=== PATIENT | female | born 2000 | race African-American/Black ===

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

== ENCOUNTER 2019-04-11 04:15 | Emergency (ER) | payer MEDICAID, OTHER ==
[2019-04-11] MEDS ORDERED: LIDOCAINE 1.5%/EPINEPHRINE INJ-PF 30 ML SDV INJ ONE (05:31)
[2019-04-11] MEDS ORDERED: SILVER NITRATE APPLICATOR 1 APPLIC STICK..EA. 10/PACKAGE TOP ONE (05:31)
[2019-04-11] MEDS ORDERED: LIDOCAINE 1%/EPINEPHRINE INJ 20 ML VIAL ONE (05:36)
[2019-04-11 05:39] LABS: APPEARANCE,URINE CLEAR; BILIRUBIN,URINE NEGATIVE (NEGATIVE); COLOR,URINE YELLOW; GLUCOSE, URINE NEGATIVE (NEGATIVE); KETONES,URINE NEGATIVE (NEGATIVE); PROTEIN,URINE NEGATIVE (NEGATIVE); URINE SPECIFIC GRAVITY 1.018; UROBILINOGEN,URINE NEGATIVE mg/dL (<2.0)
--- NOTE | 2019-04-11 06:16 | ER Document Report ---
ED GI/ - General Chief Complaint: Lower Abdominal Pain Stated Complaint: LOWER ABDOMINAL PAIN Time Seen by Provider: 04/11/19 05:04 Information source: Patient Notes: Ms. Arteaga is a 19 yo F w/ no significant past medical history presenting to the emergency department for lower abdominal pain. Patient states the pain has been going on for 3 to 4 days and describes it is a discomfort/pressure in the pelvis. She endorses some vaginal discharge that is yellowish in coloration. No foul smells. Patient does endorse multiple sexual partners, last sexual partner was approximately 2 to 3 weeks ago. She denies regular use of condoms. She is not actively using any form of control. Patient denies any chest pain, fever, chills, upper abdominal pain, nausea, vomiting or diarrhea. She denies any increased urinary frequency or dysuria. TRAVEL OUTSIDE OF THE [place] IN LAST 30 DAYS: No - Related Data Allergies/Adverse Reactions: No Known Allergies Allergy (Verified 04/11/19 04:22) Past Medical History - Social History Smoking Status: Never Smoker Family History: Reviewed & Not Pertinent Patient has suicidal ideation: No Patient has homicidal ideation: No Pulmonary Medical History: Reports: Hx Asthma Renal/ Medical History: Denies: Hx Peritoneal Dialysis Psychiatric Medical History: Reports: Hx Anxiety - Immunizations Immunizations up to date: Yes Hx Diphtheria, Pertussis, Tetanus Vaccination: No Review of Systems - Review of Systems Constitutional: See HPI EENT: No symptoms reported Cardiovascular: No symptoms reported Respiratory: No symptoms reported Gastrointestinal: No symptoms reported Genitourinary: See HPI Female Genitourinary: No symptoms reported Musculoskeletal: No symptoms reported Skin: No symptoms reported Hematologic/Lymphatic: No symptoms reported Neurological/Psychological: No symptoms reported Physical Exam - Vital signs Vitals: Temp Pulse Resp BP Pulse Ox 98.7 F 68 16 119/65 99 04/11/19 04:20 04/11/19 04:20 04/11/19 04:20 04/11/19 04:20 04/11/19 04:20 Interpretation: Normal - General General appearance: Appears well, Alert - HEENT Head: Normocephalic, Atraumatic Eyes: Normal Pupils: PERRL - Respiratory Respiratory status: No respiratory distress Chest status: Nontender Breath sounds: Normal Chest palpation: Normal - Cardiovascular Rhythm: Regular Heart sounds: Normal auscultation Murmur: No - Abdominal Inspection: Normal Distension: No distension Bowel sounds: Normal Tenderness: Nontender Organomegaly: No organomegaly - Genitourinary External exam: Normal Speculum exam: Cervix closed, Vaginal discharge - Yellow thick discharge Vaginal bleeding: None Bimanuel exam: No: Cervical motion tender - Back Back: Normal, Nontender - Extremities General upper extremity: Normal inspection, Nontender, Normal color, Normal ROM, Normal temperature General lower extremity: Normal inspection, Nontender, Normal color, Normal ROM, Normal temperature, Normal weight bearing. No: Juany's sign - Neurological Neuro grossly intact: Yes Cognition: Normal Orientation: AAOx4 [place] Coma Scale Eye Opening: Spontaneous [place] Coma Scale Verbal: Oriented [place] Coma Scale Motor: Obeys Commands [place] Coma Scale Total: 15 Speech: Normal Motor strength normal: LUE, RUE, LLE, RLE Sensory: Normal - Psychological Associated symptoms: Normal affect, Normal mood - Skin Skin Temperature: Warm Skin Moisture: Dry Skin Color: Normal Course - Re-evaluation Re-evalutation: Patient is an otherwise healthy 19-year-old female with pelvic pain. Initial vitals within normal limits. Differential diagnosis includes UTI, candidal infection, STI, , like to rule out abnormality. 04/11/19 05:50 Patient did not have CMT on physical examination to suggest PID. She does not have evidence of a UTI and negative. CBC and CMP pending. Patient signed out to labs as well as her gonorrhea/chlamydia. - Vital Signs Vital signs: Temp Pulse Resp BP Pulse Ox 98.7 F 68 16 119/65 99 04/11/19 04:20 04/11/19 04:20 04/11/19 04:20 04/11/19 04:20 04/11/19 04:20 - Laboratory Result Diagrams: 04/11/19 05:55 04/11/19 05:55 Laboratory results interpreted by me: 04/11/19 04/11/19 05:55 05:55 RDW 14.1 H Total Protein 8.4 H Discharge - Discharge Clinical Impression: Pelvic pain Condition: Good Disposition: OTHER
[2019-04-11 06:20] LABS: ABSOLUTE BASOPHILS # (AUTO) 0.1 10^3/uL (0.0-0.2); ABSOLUTE EOSINOPHILS # (AUTO) 0.2 10^3/uL (0.0-0.6); ABSOLUTE LYMPHOCYTES (AUTO) 2.3 10^3/uL (0.5-4.7); ABSOLUTE MONOCYTES (AUTO) 0.7 10^3/uL (0.1-1.4); ABSOLUTE NEUT (AUTO) 4.4 10^3/uL (1.7-8.2); BASOPHILS % (AUTO) 1.1 % (0-2); EOSINOPHILS % (AUTO) 2.4 % (0-6); HEMATOCRIT 39.6 % (36.0-47.0); HEMOGLOBIN 13.7 g/dL (12.0-15.5); LYMPHOCYTES % (AUTO) 29.9 % (13-45); MEAN CORPUSCULAR HEMOGLOBIN 27.9 pg (27.0-33.4); MEAN CORPUSCULAR HGB CONC 34.5 g/dL (32.0-36.0); MEAN CORPUSCULAR VOLUME 81 fl (80-97); MONOCYTES % (AUTO) 9.3 % (3-13); PLATELET COUNT 276 10^3/uL (150-450); RED BLOOD COUNT 4.89 10^6/uL (3.72-5.28); RED CELL DISTRIBUTION WIDTH 14.1 % (11.5-14.0); SEGMENTED NEUTROPHILS % (AUTO) 57.3 % (42-78); TOTAL CELLS COUNTED % (AUTO) 100 %; WHITE BLOOD COUNT 7.7 10^3/uL (4.0-10.5)
[2019-04-11 06:21] LABS: BACTERIA (WET MOUNT) 3+ BACTERIA SEEN; EPITHELIALS (WET MOUNT) 3+ EPITHELIALS SEEN; RBCS (WET MOUNT) 1+ RBCS SEEN; T.VAGINALIS (WET MOUNT) NO TRICHOMONAS SEEN; WBCS (WET MOUNT) 2+ WBCS SEEN; YEAST (WET MOUNT) YEAST SEEN
[2019-04-11 06:29] LABS: ALBUMIN 4.8 g/dL (3.5-5.0); ALKALINE PHOSPHATASE 81 U/L (38-126); ANION GAP 11 (5-19); ASPARTATE AMINO TRANSFERASE 24 U/L (14-36); BILIRUBIN,DIRECT 0.1 mg/dL (0.0-0.4); BILIRUBIN,TOTAL 0.5 mg/dL (0.2-1.3); BLOOD UREA NITROGEN 15 mg/dL (7-20); CARBON DIOXIDE 26 mmol/L (22-30); CHLORIDE 101 mmol/L (98-107); GLUCOSE 98 mg/dL (75-110); POTASSIUM 4.2 mmol/L (3.6-5.0); TOTAL PROTEIN 8.4 g/dL (6.3-8.2)
[2019-04-11 08:21] LABS: CHLAM PCR NOT DETECTED (NOT DETECT)
[2019-04-11 09:01] VITALS: BP 97/61
== END 2019-04-11 09:02 | disposition home or self-care (01) ==
LOC: ER 04:15
DX: B37.3 Candidiasis of vulva and vagina (principal); R10.2 Pelvic and perineal pain; R10.30 Lower abdominal pain, unspecified
CPT/HCPCS: 36415; 87210; 85025; 81025; 80053; 81001; 87491; 87591; J3490; 96374; 99284

== ENCOUNTER 2019-06-07 12:48 | Emergency (ER) | payer OTHER ==
--- NOTE | 2019-06-07 13:12 | ER Document Report ---
ED Medical Screen (RME) - General Chief Complaint: Abdominal Pain Stated Complaint: ABDOMINAL PAIN Time Seen by Provider: 06/07/19 13:05 Mode of Arrival: Ambulatory Information source: Patient Notes: 27-year-old female presents emergency department worried that she may have ovarian cyst. Reports she has had pains generalized to her abdomen and her cousin/godmother told her that it could be ovarian cyst. She denies history of ovarian cyst. She reports some abdominal pain generalized when she has her menses. Reports last menses she had slight vaginal bleeding before her menses on May 31. Denies fever vomiting diarrhea. Denies pain with void denies vaginal discharge. Patient looks absolutely wonderful no distress. I have greeted and performed a rapid initial assessment of this patient. A comprehensive ED assessment and evaluation of the patient, analysis of test results and completion of the medical decision making process will be conducted by additional ED providers. TRAVEL OUTSIDE OF THE [place] IN LAST 30 DAYS: No - Related Data Allergies/Adverse Reactions: No Known Allergies Allergy (Verified 06/07/19 13:02) Past Medical History Pulmonary Medical History: Reports: Hx Asthma Renal/ Medical History: Denies: Hx Peritoneal Dialysis Psychiatric Medical History: Reports: Hx Anxiety - Immunizations Immunizations up to date: Yes Hx Diphtheria, Pertussis, Tetanus Vaccination: No
[2019-06-07] MEDS ORDERED: CEFTRIAXONE INJ 250 MG VIAL IM ONE (13:53)
[2019-06-07] MEDS ORDERED: AZITHROMYCIN 250 MG TABLET PO ONE (13:53)
[2019-06-07] MEDS ORDERED: LIDOCAINE 1% INJ-PF (10 MG/ML) 30 ML SDV INJ ONE (13:53)
--- NOTE | 2019-06-07 14:02 | ER Document Report ---
ED General - General Chief Complaint: Abdominal Pain Stated Complaint: ABDOMINAL PAIN Time Seen by Provider: 06/07/19 13:05 Mode of Arrival: Ambulatory TRAVEL OUTSIDE OF THE [place] IN LAST 30 DAYS: No - HPI Notes: Patient is a 19-year-old female with no significant past medical history who presents complaining of intermittent lower pelvic cramping with vaginal odor and discharge over the past month. Patient states that she is sexually active. Unknown if , but did have her last menstrual cycle a couple weeks ago. She currently does not have any pain at this time. She is able to eat and drink without difficulty. She is urinating normally and having normal bowel m ovements. Denies drug allergies. Denies any headache, fever, neck pain, URI, sore throat, chest pain, palpitations, syncope, cough, shortness of breath, wheeze, dyspnea, abdominal pain, nausea/vomiting/diarrhea, urinary retention, dysuria, hematuria, or rash. - Related Data Allergies/Adverse Reactions: No Known Allergies Allergy (Verified 06/07/19 13:02) Past Medical History - General Information source: Patient - Social History Smoking Status: Never Smoker Chew tobacco use (# tins/day): No Frequency of alcohol use: None Drug Abuse: None Family History: Reviewed & Not Pertinent Patient has suicidal ideation: No Patient has homicidal ideation: No Pulmonary Medical History: Reports: Hx Asthma Renal/ Medical History: Denies: Hx Peritoneal Dialysis Psychiatric Medical History: Reports: Hx Anxiety - Immunizations Immunizations up to date: Yes Hx Diphtheria, Pertussis, Tetanus Vaccination: No Review of Systems - Review of Systems -: Yes All other systems reviewed and negative Physical Exam - Vital signs Vitals: Temp Pulse Resp BP Pulse Ox 97.6 F 86 16 129/86 H 97 06/07/19 13:15 06/07/19 13:15 06/07/19 13:15 06/07/19 13:15 06/07/19 13:15 - Notes Notes: PHYSICAL EXAMINATION: GENERAL: Well-appearing, well-nourished and in no acute distress. HEAD: Atraumatic, normocephalic. EYES: Pupils equal round and reactive to light, extraocular movements intact, conjunctiva are normal. ENT: Nares patent, oropharynx clear without exudates. Moist mucous membranes. No tonsillar hypertrophy or erythema. No sinus tenderness. NECK: Normal range of motion, supple without lymphadenopathy LUNGS: Breath sounds clear to auscultation bilaterally and equal. No wheezes rales or rhonchi. HEART: Regular rate and rhythm without murmurs ABDOMEN: Soft, nontender, nondistended abdomen. No guarding, no rebound. Normal bowel sounds present. CVA tenderness negative bilaterally. No tenderness at [place]. Duran neg. Female per Kathy DIRECTOR PRODUCT DEVELOPMENT (pt did not want male provider for exam): No inguinal adenopathy. External genitalia without erythema, lesions, or masses. Vaginal mucosa pink with scant white discharge. Cervix parous, pink, and without discharge. Uterus is smooth. No adnexal tenderness. No CMT. Musculoskeletal: FROM to passive/active. Strength 5+/5. Extremities: No cyanosis/clubbing/edema b/l. Peripheral pulses 2+. Capillary refill less than 3 seconds. NEUROLOGICAL: Normal speech, normal gait. PSYCH: Normal mood, normal affect. SKIN: Warm, Dry, normal turgor, no rashes or lesions noted. Course - Re-evaluation Re-evalutation: 06/07/19 15:15 Patient is an afebrile, well-hydrated, 19-year-old female who presents to the ED with rt ovarian cyst and BV. Vitals are acceptable without any significant tachycardia, tachypnea, or hypoxia. PE is otherwise unremarkable. Labs unremarkable. See wet mount results. Chlam/gonorrhea tests are pending. Patient received zithromax/rocephin. Patient is nontoxic-appearing is tolerating p.o. without any difficulties. Transvaginal ultrasound was also unremarkable for any acute pathology aside from small ovarian cyst. No other labs or imaging warranted at this time based on H&P. Low suspicion/risk for acute appendicitis, bowel obstruction, acute cholecystitis, acute cholangitis, perforated diverticulitis, incarcerated hernia, pancreatitis, perforated ulcer, peritonitis, sepsis, pelvic inflammatory disease, ectopic , tubo- ovarian abscess, ovarian torsion, or other systemic emergent condition at this time. Patient is aware that her condition can change from initial presentation and she needs to monitor symptoms closely and seek medical attention if any acute changes. I will send her home with prescription for Flagyl. ETOH precautions reviewed. Conservative measures otherwise for symptoms. Recheck with your PCM/OBGYN in 3-5 days. Return to the ED with any worsening/concerning symptoms otherwise as reviewed in discharge. Patient is in agreement. - Vital Signs Vital signs: Temp Pulse Resp BP Pulse Ox 97.6 F 86 16 129/86 H 97 06/07/19 13:15 06/07/19 13:15 06/07/19 13:15 06/07/19 13:15 06/07/19 13:15 - Laboratory Result Diagrams: 06/07/19 13:25 06/07/19 13:25 Laboratory results interpreted by me: 06/07/19 06/07/19 13:25 13:25 Total Protein 8.5 H Ur Leukocyte Esterase TRACE H Urine Ascorbic Acid 20 H Discharge - Discharge Clinical Impression: Ovarian cyst, right, Bacterial vaginosis Condition: Stable Disposition: HOME, SELF-CARE Instructions: Vaginosis, Bacterial ([facility]), Metronidazole ([facility]), Ovarian Cyst ([facility]) Additional Instructions: Maintain fluid intake Proper hygienic technique Keep the skin clean Safe sexual practices with condoms everytime Tylenol/ibuprofen as needed Check in with the health department this week for further testing if warranted Your chlamydia/gonorrhea tests are pending and you will be notified if positive results; you may call in 1 day for the results as well F/u with your PCM/OBGYN in 3-5 days for a recheck Return to the ED with any development of CURRIE/fever, trouble with vision, eye redness, worsening pain, urethral discharge, urinary retention, blood in the urine, flank pain, abdominal pain, n/v, Chest Pain, shortness of breath, joint pains, trouble breathing, or any other worsening/concerning symptoms as needed otherwise. Prescriptions: Metronidazole [Flagyl] 500 mg PO BID #14 tablet Forms: Elevated Blood Pressure Referrals: [facility] [Provider Group] - Follow up as needed
[2019-06-07 14:14] LABS: ABSOLUTE BASOPHILS # (AUTO) 0.1 10^3/uL (0.0-0.2); ABSOLUTE EOSINOPHILS # (AUTO) 0.3 10^3/uL (0.0-0.6); ABSOLUTE LYMPHOCYTES (AUTO) 2.3 10^3/uL (0.5-4.7); ABSOLUTE MONOCYTES (AUTO) 0.6 10^3/uL (0.1-1.4); ABSOLUTE NEUT (AUTO) 6.8 10^3/uL (1.7-8.2); BASOPHILS % (AUTO) 0.6 % (0-2); EOSINOPHILS % (AUTO) 3.1 % (0-6); HEMATOCRIT 39.2 % (36.0-47.0); HEMOGLOBIN 13.4 g/dL (12.0-15.5); LYMPHOCYTES % (AUTO) 22.8 % (13-45); MEAN CORPUSCULAR HEMOGLOBIN 28.4 pg (27.0-33.4); MEAN CORPUSCULAR HGB CONC 34.2 g/dL (32.0-36.0); MEAN CORPUSCULAR VOLUME 83 fl (80-97); MONOCYTES % (AUTO) 6.1 % (3-13); PLATELET COUNT 282 10^3/uL (150-450); RED BLOOD COUNT 4.73 10^6/uL (3.72-5.28); SEGMENTED NEUTROPHILS % (AUTO) 67.4 % (42-78); TOTAL CELLS COUNTED % (AUTO) 100 %; WHITE BLOOD COUNT 10.1 10^3/uL (4.0-10.5)
[2019-06-07 14:15] LABS: APPEARANCE,URINE CLEAR; BILIRUBIN,URINE NEGATIVE (NEGATIVE); COLOR,URINE YELLOW; GLUCOSE, URINE NEGATIVE (NEGATIVE); KETONES,URINE NEGATIVE (NEGATIVE); LEUKOCYTE ESTERASE,URINE TRACE (NEGATIVE); NITRITE,URINE NEGATIVE (NEGATIVE); PROTEIN,URINE NEGATIVE (NEGATIVE); URINE SPECIFIC GRAVITY 1.015; UROBILINOGEN,URINE NEGATIVE mg/dL (<2.0)
[2019-06-07 14:25] LABS: BACTERIA (WET MOUNT) 3+ BACTERIA SEEN; T.VAGINALIS (WET MOUNT) NO TRICHOMONAS SEEN; WBCS (WET MOUNT) RARE WBCS SEEN; YEAST (WET MOUNT) NO YEAST SEEN
[2019-06-07 14:34] LABS: ALBUMIN 4.7 g/dL (3.5-5.0); ALKALINE PHOSPHATASE 93 U/L (38-126); ANION GAP 12 (5-19); ASPARTATE AMINO TRANSFERASE 28 U/L (14-36); BILIRUBIN,DIRECT 0.2 mg/dL (0.0-0.4); BILIRUBIN,TOTAL 0.4 mg/dL (0.2-1.3); BLOOD UREA NITROGEN 10 mg/dL (7-20); CALCIUM 10.1 mg/dL (8.4-10.2); CARBON DIOXIDE 28 mmol/L (22-30); CHLORIDE 100 mmol/L (98-107); GLUCOSE 94 mg/dL (75-110); POTASSIUM 4.4 mmol/L (3.6-5.0); TOTAL PROTEIN 8.5 g/dL (6.3-8.2)
--- NOTE | 2019-06-07 15:12 | RADIOLOGY REPORT (SQ) ---
EXAM DESCRIPTION: U/S NON-OB PELVIS TV W/O DOP COMPLETED DATE/TIME: 06/07/2019 2:52 pm REASON FOR STUDY: abd pain, worried about ovarian cysts COMPARISON: None. TECHNIQUE: Dynamic and static grayscale images acquired of the pelvis via transvaginal approach and recorded on PACS. Additional selected color Doppler and spectral images recorded. LIMITATIONS: None. FINDINGS: UTERUS: Contour normal. No mass. ENDOMETRIAL STRIPE: No focal or generalized thickening. No masses. CERVIX: No nabothian cysts. RIGHT OVARY AND DOPPLER: Normal size. 1.3 cm simple cyst. No worrisome masses. Normal arterial vasc ular flow without evidence for torsion. LEFT OVARY AND DOPPLER: Normal size. No worrisome masses. Normal arterial vascular flow without evide nce for torsion. FREE FLUID: None noted. OTHER: No other significant finding. MEASUREMENTS: UTERUS: 3.9 x 4.2 x 6.9 cm. ENDOMETRIAL STRIPE: 5 mm. RIGHT OVARY: 2.1 x 2.7 x 3.1 cm. LEFT OVARY: 1.9 x 1.9 x 2.4 cm. IMPRESSION: 1.3 CM SIMPLE CYST IN THE RIGHT OVARY. OTHERWISE UNREMARKABLE TRANSVAGINAL PELVIC ULTRA SOUND. TECHNICAL DOCUMENTATION: JOB ID: [id number] [employer]- All Rights Reserved Rev-10/16 Reading location - IP/workstation name: [email or web address]
[2019-06-07 15:35] VITALS: BP 115/50
[2019-06-07 16:06] LABS: CHLAM PCR NOT DETECTED (NOT DETECT)
== END 2019-06-07 15:36 | disposition home or self-care (01) ==
LOC: ER 12:48
DX: N76.0 Acute vaginitis (principal); B96.89 Other specified bacterial agents as the cause of diseases classified elsewhere; N83.291 Other ovarian cyst, right side; R10.2 Pelvic and perineal pain; J45.909 Unspecified asthma, uncomplicated
CPT/HCPCS: 99284; 96372; 36415; 87210; 85025; 81025; 80053; 81001; 87491; 87591; 76830; J3490; J0696

== ENCOUNTER 2020-02-24 11:58 | Outpatient (CLI) | payer OTHER ==
[2020-02-24 12:46] LABS: APPEARANCE,URINE CLEAR; BILIRUBIN,URINE NEGATIVE (NEGATIVE); COLOR,URINE YELLOW; GLUCOSE, URINE NEGATIVE (NEGATIVE); KETONES,URINE NEGATIVE (NEGATIVE); LEUKOCYTE ESTERASE,URINE NEGATIVE (NEGATIVE); NITRITE,URINE NEGATIVE (NEGATIVE); PROTEIN,URINE NEGATIVE (NEGATIVE); URINE SPECIFIC GRAVITY 1.008; UROBILINOGEN,URINE NEGATIVE mg/dL (<2.0)
--- NOTE | 2020-02-24 13:02 | Non Stress Test Report ---
Non Stress Test Datetime Report Generated by CPN: 02/24/2020 13:02 DEMOGRAPHIC EGA NST: 38.3 INDICATION Indication for Study (NST) Other: IUP at 38.3; Not in labor VITAL SIGNS Temperature - NST: 99.2 Pulse - NST: 80 RESP - NST: 18 NBPSYS NST: 98 NBPDIA NST: 56 MONITORING Monitor Explained: Monitor Explained; Test Explained; Patient Verbalized Understanding Time on Monitor: 02/24/2020 12:18 Time off Monitor: 02/24/2020 12:47 NST Duration: 29 NST INTERVENTIONS NST Interventions: PO Hydration BABY A: [id number] BABY A Movement : Present Contraction Frequency : 5-7 minutes FHR Baseline : 130 Accelerations : 15X15 Decelerations : None Variability : Moderate 6-25bpm NST Review and Verified By : SAalviny NST REPORT Report Trigger: Send Report
[2020-02-24 13:07] LABS: URINE AMPHETAMINES SCREEN NEGATIVE; URINE BARBITURATES SCREEN NEGATIVE; URINE BENZODIAZEPINES SCREEN NEGATIVE; URINE COCAINE SCREEN NEGATIVE; URINE MARIJUANA (THC) SCREEN NEGATIVE; URINE METHADONE SCREEN NEGATIVE; URINE PHENCYCLIDINE SCREEN NEGATIVE
== END 2020-02-24 12:58 | disposition home or self-care (01) ==
LOC: LC 11:58
PROVIDERS: ATTEND Obstetrics & Gynecology Gynecology
DX: O47.1 False labor at or after 37 completed weeks of gestation (principal); Z3A.38 38 weeks gestation of pregnancy
CPT/HCPCS: 59025; 80307; 81005

== ENCOUNTER 2020-02-25 12:36 | Inpatient (IN) | payer OTHER ==
[2020-02-25] MEDS ORDERED: OXYTOCIN 10 UNIT/ML VIAL ONE (12:51)
[2020-02-25] MEDS ORDERED: MISOPROSTOL 0.2 MG TABLET ONE (12:52)
[2020-02-25] MEDS ORDERED: PENICILLIN G-K 5 MILLION UNIT VIAL ONE (12:52)
[2020-02-25] MEDS ORDERED: OXYTOCIN/0.9 % SODIUM CHLORIDE 30 UNIT/500 ML RTUINJ ONE (12:52)
[2020-02-25] MEDS ORDERED: LIDOCAINE 1% INJ-PF (10 MG/ML) 30 ML SDV ONE (12:52)
[2020-02-25] MEDS ORDERED: RINGERS SOLUTION,LACTATED 1,000 ML IV PRN (12:55)
[2020-02-25] MEDS ORDERED: PENICILLIN G-K 5 MILLION UNIT VIAL IV ONE (12:56)
--- NOTE | 2020-02-25 13:47 | Admission Physical ---
Datetime Report Generated by CPN: 02/25/2020 13:47 CURRENT ADMISSION Chief Complaint: Uterine Contractions; Suspected Ruptured Membranes Indication for Induction: Not Applicable Admit Impression : Term, Intrauterine ; Active Labor Admit Plan: Admit to Unit; Initiate Labor Protocol ALLERGIES Medication Allergies: No Medication Allergies: No Known Allergies (02/25/2020) Latex: Unknown OBSTETRICAL HISTORY EDC: 03/06/2020 00:00 : 2 Para: 1 Term: 1 : 0 SAB: 0 IAB: 0 Ectopic: 0 Livin Cesareans: 0 VBACs: 0 Multiple Births: 0 Gestational Diabetes: No Rh Sensitization: No Incompetent Cervix: No KENNETH: No Infertility: No ART Treatment: No Uterine Anomaly: No IUGR: No Hx Previous C/S: No Macrosomia: No Hx Loss/Stillborn: No PIH: No Hx : No Placenta Previa/Abruption: No Depression/PP Depression: No PTL/PROM: No Post Hemorrhage: No Current Procedures: Ultrasound Obstetrical History Comments: G1- 04/10/2016 G2- current SEE RECORDS Alcohol: No Marijuana : No Cocaine: No Other Illicit Drugs: No Cigarettes: Never Smoker. [id number] MEDICAL HISTORY Diabetes: No Blood Transfusion: No Pulmonary Disease (Asthma, TB): No Breast Disease: No Hypertension: No Pathology Secretary Surgery: No Heart Disease: No Hosp/Surgery: No Autoimmune Disorder: No Anesthetic Complications: No Kidney Disease: No Abnormal Pap Smear: No Neuro/Epilepsy: No Psychiatric Disorders: No Other Medical Diseases: No Hepatitis/Liver Disease: No Significant Family History: No Varicosities/Phlebitis: No Trauma/Violence : No Thyroid Dysfunction: No INFECTIOUS HISTORY Gonorrhea: No Genital Herpes: No Chlamydia: No Tuberculosis: No Syphilis: No Hepatitis: No HIV/AIDS Exposure: No Rash or Viral Illness: No HPV: No PHYSICAL EXAM General: Normal HEENT: Normal Neurologic: Normal Thyroid: Normal Heart: Normal Lungs: Normal Breast: Normal Back: Normal Abdomen: Normal Genitourinary Exam: Normal Extremities: Normal DTRs: Normal Pelvic Type: Adequate Vital Signs: Reviewed; Within Normal Limits VAGINAL EXAM Dilatation: 7 Effacement: 100 Station: 2 MEMBRANES Pooling: Positive Membranes: Ruptured Amniotic Fluid Color: Clear FETUS A EGA: 38.4 Monitoring: External US FHR- Baseline: 130 Variability: Moderate 6-25bpm Accelerations: 15X15 Decelerations: None FHR Category: Category I Estimated Weight (gm): 3500 Presentation: Vertex PLANS FOR LABOR AND DELIVERY Pain Management: Epidural Feeding Preference: Both Benefit of Breast Feed Discussed: Yes INFORMED CONSENT Signature: with User ID: [email or web address]
[2020-02-25] MEDS ORDERED: ZOLPIDEM TARTRATE 5 MG TABLET PO PRN (13:50)
[2020-02-25] MEDS ORDERED: DIPH/PERTUSS(ACELL)/TETANUS VAC/PF 0.5 ML SYR (>=10YO) IM PRN (13:50)
[2020-02-25] MEDS ORDERED: MAGNESIUM HYDROXIDE SUSP 30 ML UDCUP PO PRN (13:50)
[2020-02-25] MEDS ORDERED: BENZOCAINE/MENTHOL AEROSOL SPRAY 56 ML TOP PRN (13:50)
[2020-02-25] MEDS ORDERED: ACETAMINOPHEN 650 MG SUPP.RECT PR PRN (13:50)
[2020-02-25] MEDS ORDERED: PROMETHAZINE HCL 25 MG SUPP.RECT PR PRN (13:50)
[2020-02-25] MEDS ORDERED: NA PHOS,M-B/NA PHOS,DI-BA (ADULT) 133 ML ENEMA PR PRN (13:50)
[2020-02-25] MEDS ORDERED: DIPHENHYDRAMINE HCL 25 MG CAPSULE PO PRN (13:50)
[2020-02-25] MEDS ORDERED: MEASLES,MUMPS&RUBELLA VACC/PF 0.5 ML VIAL SUBCUT PRN (13:50)
[2020-02-25] MEDS ORDERED: ACETAMINOPHEN 325 MG TABLET PO PRN (13:50)
[2020-02-25] MEDS ORDERED: DIBUCAINE 1% OINTMENT 28 GM TP PRN (13:50)
[2020-02-25] MEDS ORDERED: PSEUDOEPHEDRINE HCL 30 MG TABLET PO PRN (13:50)
[2020-02-25] MEDS ORDERED: PROMETHAZINE HCL 25 MG TABLET PO PRN (13:50)
[2020-02-25] MEDS ORDERED: OXYTOCIN/0.9 % SODIUM CHLORIDE 30 UNIT/500 ML RTUINJ IV PRN (13:50)
[2020-02-25] MEDS ORDERED: GLYCERIN/WITCH HAZEL LEAF 1 EACH MED..WIPE TP PRN (13:50)
[2020-02-25] MEDS ORDERED: ACETAMINOPHEN WITH CODEINE #3 TABLET PO PRN (13:50)
[2020-02-25] MEDS ORDERED: PROMETHAZINE HCL INJ 25 MG/1 ML VIAL IV PRN (13:50)
[2020-02-25] MEDS ORDERED: ACETAMINOPHEN WITH CODEINE #3 TABLET ONE (13:54)
[2020-02-25] MEDS ORDERED: BENZOCAINE/MENTHOL AEROSOL SPRAY 56 ML ONE (13:55)
[2020-02-25] MEDS: ACETAMINOPHEN WITH CODEINE #3 TABLET PO PRN (13:59)
--- NOTE | 2020-02-25 14:11 | Warning Signs in Babies ---
VOD Warning Signs Datetime Report Generated by [facility]: 02/25/2020 14:10 VOD#608 -Warning Signs in Babies: Needs to be viewed. (02/24/2020 12:01:Lindsay Miller RN)
[2020-02-25 14:58] LABS: APPEARANCE,URINE CLOUDY; BILIRUBIN,URINE NEGATIVE (NEGATIVE); COLOR,URINE YELLOW; GLUCOSE, URINE NEGATIVE (NEGATIVE); KETONES,URINE 20 mg/dL (NEGATIVE); LEUKOCYTE ESTERASE,URINE NEGATIVE (NEGATIVE); NITRITE,URINE NEGATIVE (NEGATIVE); PROTEIN,URINE 30 mg/dL (NEGATIVE); URINE SPECIFIC GRAVITY 1.014; UROBILINOGEN,URINE NEGATIVE mg/dL (<2.0)
[2020-02-25 15:06] LABS: HEMATOCRIT 40.3 % (36.0-47.0); HEMOGLOBIN 13.6 g/dL (12.0-15.5); MEAN CORPUSCULAR HEMOGLOBIN 27.8 pg (27.0-33.4); MEAN CORPUSCULAR HGB CONC 33.6 g/dL (32.0-36.0); MEAN CORPUSCULAR VOLUME 83 fl (80-97); PLATELET COUNT 196 10^3/uL (150-450); RED BLOOD COUNT 4.88 10^6/uL (3.72-5.28); WHITE BLOOD COUNT 16.7 10^3/uL (4.0-10.5)
[2020-02-25] MEDS: IBUPROFEN 800 MG TABLET PO SCH ×2 (15:09→21:10)
[2020-02-25 15:17] LABS: URINE AMPHETAMINES SCREEN NEGATIVE; URINE BARBITURATES SCREEN NEGATIVE; URINE BENZODIAZEPINES SCREEN NEGATIVE; URINE COCAINE SCREEN NEGATIVE; URINE MARIJUANA (THC) SCREEN NEGATIVE; URINE METHADONE SCREEN NEGATIVE; URINE PHENCYCLIDINE SCREEN NEGATIVE
[2020-02-25 15:30] LABS: ABSOLUTE LYMPHOCYTES# (MANUAL) 1.2 10^3/uL (0.5-4.7); ABSOLUTE MONOCYTES # (MANUAL) 0.7 10^3/uL (0.1-1.4); ANISOCYTOSIS SLIGHT; BASOPHILS % (MANUAL) 0 % (0-2); EOSINOPHILS % (MANUAL) 0 % (0-6); LYMPHOCYTES % (MANUAL) 7 % (13-45); MONOCYTES % (MANUAL) 4 % (3-13); PLATELET CLUMPS PRESENT; PLATELET COMMENT ADEQUATE; SEGMENTED NEUTROPHILS % (MAN) 89 % (42-78); TOTAL CELLS COUNTED 100
--- NOTE | 2020-02-25 16:14 | Birth Certificate Data ---
Cert Data Datetime Report Generated by [facility]: 02/25/2020 16:14 CERTIFICATE DATA 47a. Care: Yes (02/24/2020 12:01:Lindsay Miller RN) 47b. Date of First Visit: 08/02/2019 00:00 (02/24/2020 12:01:Lindsay Miller RN) 47c. Date of Last Visit: 02/21/2020 00:00 (02/24/2020 12:01:Lindsay Miller RN) 47d. Number of Visits: 14 (02/24/2020 12:01:Lindsay Miller RN) 48a. Number of Prev Live Births: 1 (02/24/2020 12:01:Lindsay Miller RN) 48b. Now Livin (02/24/2020 12:01:Valeria Rosado RN) 48c. Live Births Now : 0 (02/24/2020 12:01:QS system process) 48d. Date of Last Live : 04/10/2019 00:00 (02/24/2020 12:01:Lindsay Miller RN) 48e. Losses: 0 (02/24/2020 12:01:Lindsay Miller RN) RISK FACTORS IN THIS 49a. Diabetes: No (02/24/2020 12:01:Lindsay Miller RN) 49b. Hypertension: No (02/24/2020 12:01:Lindsay Miller RN) 49c. Previous Births: 0 (02/24/2020 12:01:Eva Lucio RN) 49d. Stillborns: No (02/24/2020 12:01:Lindsay Miller RN) 49d. IUGR: No (02/24/2020 12:01:Lindsay Miller RN) 49e. Infertility Treatment: No (02/24/2020 12:01:Lindsay Miller RN) 49f. Previous Cesareans: 0 (02/24/2020 12:01:Lindsay Miller RN) Mother's Height 50b. Height Inches: 66 (02/25/2020 16:07:QS system process) Mother's Weight 51a. Pre- Weight (lbs): 133 (02/24/2020 12:01:Lindsay Miller RN) 51b. Weight at Delivery (lbs): 169 (02/24/2020 12:18:QS system process) 52. Dt Last Normal Menses Began: 05/31/2019 00:00 (02/24/2020 12:01:Lindsay Miller RN) Infections Present/Treated 53a. Gonorrhea: No (02/24/2020 12:01:Lindsay Miller RN) Results this Hospital Visit : Negative (02/24/2020 12:01:Lindsay Miller RN) 53b. Syphilis: No (02/24/2020 12:01:Lindsay Miller RN) 53c. Chlamydia: No (02/24/2020 12:01:Lindsay Miller RN) Results this Hospital Visit: Negative (02/24/2020 12:01:Lindsay Miller RN) 53d. Hepatitis B: No (02/24/2020 12:01:Lindsay Miller RN) Results this Hospital Visit: Negative (02/24/2020 12:01:Lindsay Miller RN) 53e. Hepatitis C: Negative (02/24/2020 12:01:Lindsay Miller RN) 53h. Mother Tested for HBsAG: Yes (02/24/2020 12:01:Lindsay Miller RN) 53i. Date Tested: 08/02/2019 00:00 (02/24/2020 12:01:Lindsay Miller RN) 53j. Test Result: Negative (02/24/2020 12:01:Lindsay Miller RN) Obstetric Procedures 54a, b, c. Obstetric Procedures: Ultrasound (02/24/2020 12:01:Lindsay Miller RN) Cigarette Smoking Cigarette Smoking: Never Smoker. [id number] (02/24/2020 12:01:Lindsay Miller RN) 55a. 3 Months Before Preg - Ci (02/24/2020 12:01:Benjie Syed RN) 55a. Packs: 0 (02/24/2020 12:01:Benjie Syed RN) 55b. 1st Trimester of Preg- Ci (02/24/2020 12:01:Benjie Syed RN) 55b. Packs: 0 (02/24/2020 12:01:Benjie Syed RN) 55c. 2nd Trimester of Preg- Ci (02/24/2020 12:01:Benjie Syed RN) 55c. Packs: 0 (02/24/2020 12:01:Benjie Syed RN) 55d. 3rd Trimester of Preg- Ci (02/24/2020 12:01:Benjie Syed RN) 55d. Packs: 0 (02/24/2020 12:01:Benjie Syed RN) Onset of Labor 56a. PROM >12 Hrs: 0.60 (02/24/2020 12:01:QS system process) 56b. Precipitous Labor <3 Hrs: 2 (02/24/2020 12:01:QS system process) 56c. Prolonged Labor > 20 Hrs: 2 (02/24/2020 12:01:QS system process) 57a. Induction of Labor: N/A (02/24/2020 12:01:Nighat Neely RN) 57c. Non-Vertex Presentation A: Vertex (02/24/2020 12:01:Nihgat Neely RN) 57d. Steroids - Lung Mat: None (02/24/2020 12:01:Nighat Neely RN) 57d. Steroids - Lung Mat: Not Applicable (02/24/2020 12:01:Nighat Neely RN) 57e. Antibiotics During Labor: 02/25/2020 12:55 (02/24/2020 12:01:Nighat Neely RN) 57f. Mat [place] or Temp >100.4: 99.2 (02/24/2020 12:01:Lindsay Miller RN) 57g. Moderate/Heavy Meconium: Clear (02/25/2020 12:56:Lindsay Miller RN) 57h. Intolerance of Labor: N/A (02/24/2020 12:01:Nighat Neely RN) : N/A (02/24/2020 12:01:Nighat Neely RN) 57i. Epidural/Spinal Anesthesia: None (02/24/2020 12:01:Nighat Neely RN) Method of Delivery 58a. Forceps - Unsuccessful A: N/A (02/24/2020 12:01:Nighat Neely RN) 58b. Vacuum - Unsuccessful A: N/A (02/24/2020 12:01:Nighat Neely RN) 58c. Presentation at 58c. Presentation at - A : Vertex (02/24/2020 12:01:Nighat Neely RN) 58c. Presentation at - A : N/A (02/24/2020 12:01:Nighat Neely RN) 58c. Presentation at - A : Cephalic (02/24/2020 12:01:Nighat Neely RN) Final Route and Method of Del 58d. Baby A Route/Delivery: Vaginal (02/25/2020 13:32:Nighat Neely RN) 58e. Trial of Labor Attempted: No (02/24/2020 12:01:Nighat Neely RN) 58e. Trial of Labor Attempted A: N/A (02/24/2020 12:01:Nighat Neely RN) 58e. Trial of Labor Attempted B: N/A (02/24/2020 12:01:Nighat Chin, RN) Maternal Morbidity 59b. 3rd or 4th Degree Lacs: None (02/24/2020 12:01:Nighat Neely, RN) Birthweight Baby A: 3000 (02/24/2020 12:01:Lindsay Angela, RN) 60a. Pounds : 6 (02/24/2020 12:01:QS system process) 60b. Ounces: 10 (02/24/2020 12:01:QS system process) 61. GA at Delivery Baby A: 38.4 (02/24/2020 12:01:Nighat Neely RN) : Early Term- 37- 38.6 Weeks (02/24/2020 12:01:QS system process) 62a. 5 Minute Baby A: 9 (02/24/2020 12:01:QS system process)
--- NOTE | 2020-02-25 16:14 | Delivery Summary ---
Del Sum A-C Datetime Report Generated by CPN: 02/25/2020 16:14 DELIVERY PERSONNEL DELIVERY PERSONNEL: [id number] Delivery Doctor:: Radha Andrade MD Labor and Delivery Nurse:: Lindsay Miller RNagricultural chemist Nurse:: Ariana Morrow RN Break Out Worker/EDI PROGRAMMER ANALYST: Christina Lezama, ST Break Out Worker/EDI PROGRAMMER ANALYST: [facility]ton [facility], EMS EDUCATOR MATERNAL INFORMATION Delivery Anesthesia: None Medications After Delivery: Pitocin 30 Units in 500ml NS/D5W; Cytotec 800mcg Per Rectum/Vagina Estimated Blood Loss (ml): 200 Delivery QBL: 200 Maternal Complications: Precipitous Labor (<3hrs) Provider Comments: precipitous delivery within an hour of arrival to unit LABOR SUMMARY EDC: 03/06/2020 00:00 No. Babies in Womb: 1 Attempted: No Labor Anesthesia: None LABOR INFORMATION Reason for Induction: Not Applicable Onset of Labor: 02/25/2020 11:00 Complete Dilatation: 02/25/2020 13:06 Oxytocin: N/A Group B Beta Strep: Positive Antibiotics # of Doses: 1 Antibiotics Time of Last Dose: 02/25/2020 12:55 Name of Antibiotic Given: Penicillin Steroids Given: None Reason Steroids Not Administered: Not Applicable MEMBRANES Membranes Rupture Method: Spontaneous Rupture of Membranes: 02/25/2020 12:56 Length of Rupture (hr): 0.60 Amniotic Fluid Color: Clear Amniotic Fluid Amount: Small Amniotic Fluid Odor: None STAGES OF LABOR Stage 1 hr: 2 Stage 1 min: 6 Stage 2 hr: 0 Stage 2 min: 26 Stage 3 hr: 0 Stage 3 min: 4 Total Time in Labor hr: 2 Total Time in Labor min: 36 VAGINAL DELIVERY Episiotomy: None Laceration #1: None Laceration Extension #1: N/A Laceration Repair: Not Applicable Sponge Count Correct: Yes Sharps Count Correct: Yes CSECTION DELIVERY Primary Indication: N/A Secondary Indication: N/A CSection Incidence: N/A Labor: N/A Elective: N/A CSection Incision: N/A BABY A INFORMATION Delivery Date/Time: 02/25/2020 13:32 Method of Delivery: Vaginal Nurse Controlled Delivery: No Born in Route : No : N/A Forceps: N/A Vacuum Extraction: N/A Shoulder Dystocia : No PRESENTATION/POSITION BABY A Presentation: Cephalic Cephalic Presentation: Vertex Vertex Position: Left Occipital Anterior Breech Presentation: N/A PLACENTA INFORMATION BABY A Placenta Delivery Time : 02/25/2020 13:36 Placenta Method of Delivery: Spontaneous Placenta Status: Delivered SCORES BABY A Heart Rate 1 min: >100 bpm Resp Effort 1 min: Good Cry Reflex Irritability 1 min: Cough or Sneeze or Pulls Away Muscle Tone 1 min: Active Motion Color 1 min: Body [place], Extremities Blue Resuscitation Effort 1 min: Tactile Stimulation SCORE 1 MIN: 9 Heart Rate 5 min: >100 bpm Resp Effort 5 min: Good Cry Reflex Irritability 5 min: Cough or Sneeze or Pulls Away Muscle Tone 5 min: Active Motion Color 5 min: Body [place], Extremities Blue Resuscitation Effort 5 min: N/A SCORE 5 MIN: 9 INFANT INFORMATION BABY A Gestational Age at Delivery: 38.4 Gestational Status: Early Term- 37- 38.6 Weeks Outcome : Liveborn Infant Condition : Stable Infant Sex: Female IDENTIFICATION BABY A Verification Date/Time: 02/25/2020 13:42 ID Band Number: [id number] Mother's Name Verified: Yes Infant RN Verifying : MAmber Neely RN, T. Kunal RN WEIGHT/LENGTH BABY A Birthweight (gm): 3000 Weight (lb): 6 Infant Weight (oz): 10 Length (in): 18.75 Infant Length (cm): 47.63 CORD INFORMATION BABY A No. Cord Vessels: 3 Nuchal Cord : N/A Cord Blood Taken: Yes-For Eval (Mom's Blood Type - or O+) Infant Suction: None ASSESSMENT BABY A Infant Complications: None Physical Findings at Delivery: Other Physical Findings- Other: possible vaginal skin tag Skin to Skin: Yes Skin to Skin Time (min): 60 Site Inspector/ALS Called : No Infant Care By: Reddy Morrow RN Transferred To: Remains with Mother BABY B INFORMATION : N/A SIGNATURES Signature: with User ID: [email or web address]
--- NOTE | 2020-02-25 16:16 | Delivery Summary ---
Del Sum A-C Datetime Report Generated by CPN: 02/25/2020 16:15 DELIVERY PERSONNEL DELIVERY PERSONNEL: [id number] Delivery Doctor:: Radha Andrade MD Labor and Delivery Nurse:: Lindsay Miller RNmechanical project engineer Nurse:: Ariana Morrow RN Hop Trainer/QUALITY PROJECT MANAGER: Christina Lezama, ST Hop Trainer/QUALITY PROJECT MANAGER: Payton [facility], SAND DIGGER MATERNAL INFORMATION Delivery Anesthesia: None Medications After Delivery: Pitocin 30 Units in 500ml NS/D5W; Cytotec 800mcg Per Rectum/Vagina Estimated Blood Loss (ml): 200 Delivery QBL: 200 Maternal Complications: Precipitous Labor (<3hrs) Provider Comments: precipitous delivery within an hour of arrival to unit LABOR SUMMARY EDC: 03/06/2020 00:00 No. Babies in Womb: 1 Attempted: No Labor Anesthesia: None LABOR INFORMATION Reason for Induction: Not Applicable Onset of Labor: 02/25/2020 11:00 Complete Dilatation: 02/25/2020 13:06 Oxytocin: N/A Group B Beta Strep: Positive Antibiotics # of Doses: 1 Antibiotics Time of Last Dose: 02/25/2020 12:55 Name of Antibiotic Given: Penicillin Steroids Given: None Reason Steroids Not Administered: Not Applicable MEMBRANES Membranes Rupture Method: Spontaneous Rupture of Membranes: 02/25/2020 12:56 Length of Rupture (hr): 0.60 Amniotic Fluid Color: Clear Amniotic Fluid Amount: Small Amniotic Fluid Odor: None STAGES OF LABOR Stage 1 hr: 2 Stage 1 min: 6 Stage 2 hr: 0 Stage 2 min: 26 Stage 3 hr: 0 Stage 3 min: 4 Total Time in Labor hr: 2 Total Time in Labor min: 36 VAGINAL DELIVERY Episiotomy: None Laceration #1: None Laceration Extension #1: N/A Laceration Repair: Not Applicable Sponge Count Correct: Yes Sharps Count Correct: Yes CSECTION DELIVERY Primary Indication: N/A Secondary Indication: N/A CSection Incidence: N/A Labor: N/A Elective: N/A CSection Incision: N/A BABY A INFORMATION Delivery Date/Time: 02/25/2020 13:32 Method of Delivery: Vaginal Nurse Controlled Delivery: No Born in Route : No : N/A Forceps: N/A Vacuum Extraction: N/A Shoulder Dystocia : No PRESENTATION/POSITION BABY A Presentation: Cephalic Cephalic Presentation: Vertex Vertex Position: Left Occipital Anterior Breech Presentation: N/A PLACENTA INFORMATION BABY A Placenta Delivery Time : 02/25/2020 13:36 Placenta Method of Delivery: Spontaneous Placenta Status: Delivered SCORES BABY A Heart Rate 1 min: >100 bpm Resp Effort 1 min: Good Cry Reflex Irritability 1 min: Cough or Sneeze or Pulls Away Muscle Tone 1 min: Active Motion Color 1 min: Body [place], Extremities Blue Resuscitation Effort 1 min: Tactile Stimulation SCORE 1 MIN: 9 Heart Rate 5 min: >100 bpm Resp Effort 5 min: Good Cry Reflex Irritability 5 min: Cough or Sneeze or Pulls Away Muscle Tone 5 min: Active Motion Color 5 min: Body [place], Extremities Blue Resuscitation Effort 5 min: N/A SCORE 5 MIN: 9 INFANT INFORMATION BABY A Gestational Age at Delivery: 38.4 Gestational Status: Early Term- 37- 38.6 Weeks Outcome : Liveborn Infant Condition : Stable Infant Sex: Female IDENTIFICATION BABY A Verification Date/Time: 02/25/2020 13:42 ID Band Number: [id number] Mother's Name Verified: Yes Infant RN Verifying : MAmber Neely RN, T. Kunal RN WEIGHT/LENGTH BABY A Birthweight (gm): 3000 Weight (lb): 6 Infant Weight (oz): 10 Length (in): 18.75 Infant Length (cm): 47.63 CORD INFORMATION BABY A No. Cord Vessels: 3 Nuchal Cord : N/A Cord Blood Taken: Yes-For Eval (Mom's Blood Type - or O+) Infant Suction: None ASSESSMENT BABY A Infant Complications: None Physical Findings at Delivery: Other Physical Findings- Other: possible vaginal skin tag Skin to Skin: Yes Skin to Skin Time (min): 60 Cover Inspector/ALS Called : No Infant Care By: Reddy Morrow RN Transferred To: Remains with Mother BABY B INFORMATION : N/A SIGNATURES Signature: with User ID: [email or web address]
[2020-02-25] MEDS: DOCUSATE SODIUM 100 MG CAPSULE PO SCH (17:52)
[2020-02-25] MEDS: FERROUS SULFATE 325 MG TABLET PO SCH (17:52)
[2020-02-25] MEDS: FAMOTIDINE 20 MG TABLET PO SCH (21:10)
[2020-02-26] MEDS: ACETAMINOPHEN WITH CODEINE #3 TABLET PO PRN ×2 (01:51→22:45)
[2020-02-26] MEDS: IBUPROFEN 800 MG TABLET PO SCH ×3 (05:09→21:32)
[2020-02-26 06:19] LABS: HEMATOCRIT 38.4 % (36.0-47.0); MEAN CORPUSCULAR HEMOGLOBIN 27.7 pg (27.0-33.4); MEAN CORPUSCULAR HGB CONC 33.9 g/dL (32.0-36.0); MEAN CORPUSCULAR VOLUME 82 fl (80-97); PLATELET COUNT 177 10^3/uL (150-450); RED BLOOD COUNT 4.69 10^6/uL (3.72-5.28); RED CELL DISTRIBUTION WIDTH 14.9 % (11.5-14.0); WHITE BLOOD COUNT 16.2 10^3/uL (4.0-10.5)
[2020-02-26] MEDS: DOCUSATE SODIUM 100 MG CAPSULE PO SCH ×2 (09:17→18:41)
[2020-02-26] MEDS: SENNOSIDES/DOCUSATE 8.6-50 MG 1 EACH TABLET PO SCH (09:17)
[2020-02-26] MEDS: FAMOTIDINE 20 MG TABLET PO SCH ×2 (09:17→21:32)
[2020-02-26] MEDS: PRENATAL VITAMIN W DHA CAPSULE PO SCH (09:17)
[2020-02-26] MEDS: FERROUS SULFATE 325 MG TABLET PO SCH ×2 (09:17→18:41)
--- NOTE | 2020-02-26 10:29 | PDOC PROGRESS REPORT ---
Subjective-OB Progress Note for:: 02/26/20 Subjective: reports bleeding slowing, pain controlled with current meds. denies needs Physical Exam (OB) Vital Signs: Temp Pulse Resp BP Pulse Ox 98.2 F 71 16 99/63 L 100 02/26/20 09:09 02/26/20 07:51 02/26/20 07:51 02/26/20 07:51 02/25/20 19:46 Intake & Output 02/25/20 02/26/20 02/27/20 06:59 06:59 06:59 Intake Total 480 Output Total 600 Balance -120 Weight 77 kg - Maternal Morbidity 59. Maternal Morbidity (serious complications experinced by the mother associated with labor and delivery: None of the above - Abdomen Description: Soft Hernia Present: No Fundal Description: Firm Fundal Height: u/u - u/2 - Abdominal Distension: No distension Tenderness: Nontender - Extremities Lower extremities: Juany's sign - neg Calf: Normal, Nontender Objective-Diagnostic Laboratory: 02/26/20 06:09 02/25/20 02/25/20 02/25/20 12:41 14:20 14:20 WBC 16.7 H RBC 4.88 Hgb 13.6 Hct 40.3 MCV 83 MCH 27.8 MCHC 33.6 RDW 15.0 H Plt Count 196 Seg Neutrophils % Not Reportable Urine Color YELLOW Urine Appearance CLOUDY Urine pH 6.0 Ur Specific [place] 1.014 Urine Protein 30 H Urine Glucose (UA) NEGATIVE Urine Ketones 20 H Urine Blood LARGE H Urine Nitrite NEGATIVE Ur Leukocyte Esterase NEGATIVE Blood Type O POSITIVE Antibody Screen NEGATIVE 02/26/20 06:09 WBC 16.2 H RBC 4.69 Hgb 13.0 Hct 38.4 MCV 82 MCH 27.7 MCHC 33.9 RDW 14.9 H Plt Count 177 Seg Neutrophils % Urine Color Urine Appearance Urine pH Ur Specific [place] Urine Protein Urine Glucose (UA) Urine Ketones Urine Blood Urine Nitrite Ur Leukocyte Esterase Blood Type Antibody Screen Assessment and Plan(PN) - Time Spent with Patient Time with patient: Less than 15 minutes Medications reviewed and adjusted accordingly: Yes - Disposition Anticipated Discharge Disposition: Home, Self Care Anticipated Discharge Timeframe: within 24 hours
[2020-02-27] MEDS: IBUPROFEN 800 MG TABLET PO SCH (05:24)
[2020-02-27] MEDS: ACETAMINOPHEN WITH CODEINE #3 TABLET PO PRN ×2 (05:28→10:07)
[2020-02-27] MEDS: SENNOSIDES/DOCUSATE 8.6-50 MG 1 EACH TABLET PO SCH (10:03)
[2020-02-27] MEDS: FERROUS SULFATE 325 MG TABLET PO SCH (10:03)
[2020-02-27] MEDS: PRENATAL VITAMIN W DHA CAPSULE PO SCH (10:03)
[2020-02-27] MEDS: DOCUSATE SODIUM 100 MG CAPSULE PO SCH (10:03)
--- NOTE | 2020-02-27 10:39 | PDOC DISCHARGE SUMMARY ---
Impression - Admit/DC Date/PCP Admission Date/Primary Care Provider: 02/25/20 13:06 ALEXA JACK MD Discharge Date: 02/27/20 - PP Day #2, doing well, UOB. voiding, O+, breast and bottlefeeding. - Discharge Diagnosis (1) Precipitous delivery Is this a current diagnosis for this admission?: Yes (2) Group beta Strep positive Is this a current diagnosis for this admission?: Yes (3) Normal course Is this a current diagnosis for this admission?: Yes (4) Vaginal delivery Is this a current diagnosis for this admission?: Yes - Additional Information Resuscitation Status: Full Code Discharge Diet: As Tolerated, Regular Discharge Activity: Activity As Tolerated Referrals: ALEXA JACK MD [Primary Care Provider] - Prescriptions: Ibuprofen [Motrin 800 mg Tablet] 800 mg PO Q8 #60 tablet Home Medications: Pnv 102/Iron/Folate 1/Dss/Dha [Vitafol Fe+ Docusate Combo Pck] 1 each PO DAILY 02/24/20 Ibuprofen [Motrin 800 mg Tablet] 800 mg PO Q8 #60 tablet 02/27/20 HPI Reason(s) for Admission: Onset of Labor Procedures: Ultrasound Intrapartum Procedure(s): Spontaneous Vaginal Delivery Hospital Course 59. Maternal Morbidity (serious complications experinced by the mother associated with labor and delivery: None of the above Results Laboratory Results: WBC 16.2 10^3/uL (4.0-10.5) H 02/26/20 06:09 RBC 4.69 10^6/uL (3.72-5.28) 02/26/20 06:09 Hgb 13.0 g/dL (12.0-15.5) 02/26/20 06:09 Hct 38.4 % (36.0-47.0) 02/26/20 06:09 MCV 82 fl (80-97) 02/26/20 06:09 MCH 27.7 pg (27.0-33.4) 02/26/20 06:09 MCHC 33.9 g/dL (32.0-36.0) 02/26/20 06:09 RDW 14.9 % (11.5-14.0) H 02/26/20 06:09 Plt Count 177 10^3/uL (150-450) 02/26/20 06:09 Lymph % (Auto) Not Reportable 02/25/20 14:20 [place] % (Auto) Not Reportable 02/25/20 14:20 Eos % (Auto) Not Reportable 02/25/20 14:20 Baso % (Auto) Not Reportable 02/25/20 14:20 Absolute Neuts (auto) Not Reportable 02/25/20 14:20 Absolute Lymphs (auto) Not Reportable 02/25/20 14:20 Absolute Monos (auto) Not Reportable 02/25/20 14:20 Absolute Eos (auto) Not Reportable 02/25/20 14:20 Absolute Basos (auto) Not Reportable 02/25/20 14:20 Total Counted 100 02/25/20 14:20 Seg Neutrophils % Not Reportable 02/25/20 14:20 Seg Neuts % (Manual) 89 % (42-78) H 02/25/20 14:20 Lymphocytes % (Manual) 7 % (13-45) L 02/25/20 14:20 Monocytes % (Manual) 4 % (3-13) 02/25/20 14:20 Eosinophils % (Manual) 0 % (0-6) 02/25/20 14:20 Basophils % (Manual) 0 % (0-2) 02/25/20 14:20 Abs Neuts (Manual) 14.9 10^3/uL (1.7-8.2) H 02/25/20 14:20 Abs Lymphs (Manual) 1.2 10^3/uL (0.5-4.7) 02/25/20 14:20 Abs Monocytes (Manual) 0.7 10^3/uL (0.1-1.4) 02/25/20 14:20 Absolute Eos (Manual) 0.0 10^3/uL (0.0-0.6) 02/25/20 14:20 Abs Basophils (Manual) 0.0 10^3/uL (0.0-0.2) 02/25/20 14:20 Clumped Platelets PRESENT 02/25/20 14:20 Platelet Comment ADEQUATE 02/25/20 14:20 Anisocytosis SLIGHT 02/25/20 14:20 Urine Color YELLOW 02/25/20 12:41 Urine Appearance CLOUDY 02/25/20 12:41 Urine pH 6.0 (5.0-9.0) 02/25/20 12:41 Ur Specific [place] 1.014 02/25/20 12:41 Urine Protein 30 mg/dL (NEGATIVE) H 02/25/20 12:41 Urine Glucose (UA) NEGATIVE mg/dL (NEGATIVE) 02/25/20 12:41 Urine Ketones 20 mg/dL (NEGATIVE) H 02/25/20 12:41 Urine Blood LARGE (NEGATIVE) H 02/25/20 12:41 Urine Nitrite NEGATIVE (NEGATIVE) 02/25/20 12:41 Urine Bilirubin NEGATIVE (NEGATIVE) 02/25/20 12:41 Urine Urobilinogen NEGATIVE mg/dL (<2.0) 02/25/20 12:41 Ur Leukocyte Esterase NEGATIVE (NEGATIVE) 02/25/20 12:41 Urine Ascorbic Acid 20 (NEGATIVE) H 02/25/20 12:41 Membranes Rupture POSITIVE (NEGATIVE) H 02/25/20 12:48 Urine Opiates Screen NEGATIVE 02/25/20 12:41 Urine Methadone Screen NEGATIVE 02/25/20 12:41 Ur Barbiturates Screen NEGATIVE 02/25/20 12:41 Ur Phencyclidine Scrn NEGATIVE 02/25/20 12:41 Ur Amphetamines Screen NEGATIVE 02/25/20 12:41 U Benzodiazepines Scrn NEGATIVE 02/25/20 12:41 Urine Cocaine Screen NEGATIVE 02/25/20 12:41 U Marijuana (THC) Screen NEGATIVE 02/25/20 12:41 Blood Type O POSITIVE 02/25/20 14:20 Antibody Screen NEGATIVE 02/25/20 14:20 Plan Plan of Treatment: d/c home, f/up with [facility] in 4 wks for PP check Time Spent: Less than 30 Minutes
[2020-02-27 12:20] VITALS: BP 114/78
[2020-02-27] MEDS: FAMOTIDINE 20 MG TABLET PO SCH (14:11)
== END 2020-02-27 13:59 | disposition home or self-care (01) | DRG 807 ==
LOC: LC 12:36 → LR 13:06 → 2S 16:00
PROVIDERS: ADMIT Obstetrics & Gynecology; ATTEND Obstetrics & Gynecology
PROC: 10E0XZZ Delivery of Products of Conception, External Approach (ICD-10-PCS; principal; 2020-02-25)
DX: O99.824 Streptococcus B carrier state complicating childbirth (principal); Z37.0 Single live birth; O62.3 Precipitate labor; Z03.818 Encounter for observation for suspected exposure to other biological agents ruled out; Z3A.38 38 weeks gestation of pregnancy
CPT/HCPCS: 36415; 80307; 81005; 84112; 85025; 85027; 86592; 86850; 86900; 86901; J2540; J2590; J3490